=== PATIENT | male | born 1955 | race Caucasian/White ===

== ENCOUNTER → 2017-01-02 | Outpatient (CLI) | payer OTHER | END | disposition home or self-care (01) | LOC: EDSTATUS 12:45 → CFH 13:07 → EDSTATUS 13:30 | PROVIDERS: ATTEND Registered Nurse Registered Nurse First Assistant | DX: M51.37 Other intervertebral disc degeneration, lumbosacral region (principal); M51.27 Other intervertebral disc displacement, lumbosacral region; M48.06 Spinal stenosis, lumbar region; D18.09 Hemangioma of other sites; M25.78 Osteophyte, vertebrae | CPT/HCPCS: 72148 ==